=== PATIENT | female | born 1960 | race Caucasian/White ===

== ENCOUNTER 2017-12-07 08:35 | Day surgery (SDC) | payer OTHER ==
[2017-12-07] MEDS ORDERED: LACTATED RINGERS 1,000 ML IV ONE ×2 (10:03→11:17)
[2017-12-07] MEDS ORDERED: fentaNYL 250 MCG/5 ML VIAL IVP ONE (10:20)
[2017-12-07] MEDS ORDERED: MIDAZOLAM 2 MG/2 ML VIAL IVP ONE (10:20)
[2017-12-07 11:24] VITALS: BP 115/58
== END 2017-12-07 08:36 | disposition home or self-care (01) ==
LOC: SDS 08:35
PROVIDERS: ATTEND Surgery
PROC: 0DJD8ZZ Inspection of Lower Intestinal Tract, Via Natural or Artificial Opening Endoscopic (ICD-10-PCS; principal; 2017-12-07 10:30)
DX: Z12.11 Encounter for screening for malignant neoplasm of colon (principal); I10 Essential (primary) hypertension; E78.5 Hyperlipidemia, unspecified; K64.8 Other hemorrhoids
CPT/HCPCS: 45378; J3010; J7120

== ENCOUNTER 2018-11-04 06:53 | Emergency (ER) | payer OTHER ==
[2018-11-04 07:11] VITALS: BP 143/54
[2018-11-04] MEDS ORDERED: CHERRY SYRUP 10 ML UDC PO ONE (07:13)
[2018-11-04] MEDS ORDERED: DEXAMETHASONE 10 MG/ML VIAL PO STA (07:13)
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
== END 2018-11-04 07:42 | disposition home or self-care (01) ==
LOC: ED 06:53
DX: S29.012A Strain of muscle and tendon of back wall of thorax, initial encounter (principal); M54.5 Low back pain; V49.49XA Driver injured in collision with other motor vehicles in traffic accident, initial encounter; I10 Essential (primary) hypertension
CPT/HCPCS: 99282; 99283

== ENCOUNTER 2019-02-15 11:45 | Emergency (ER) | payer OTHER ==
[2019-02-15 12:08] VITALS: BP 108/62
--- NOTE | 2019-02-15 12:36 | ED Physician Documentation ---
History of Present Illness - Stated complaint Stated Complaint: RT SIDE LYMPH NODE SWOLLEN - Chief complaint Chief Complaint: General - History obtained from History obtained from: Patient - History of Present Illness Timing: Chronic (For the last 2 or 3 months she has had a slightly painful lesion under the right side of the jaw, she has noticed more recently that when she eats it becomes bigger in size and more painful. She wonders if it might be an infection but denies any fevers. No other swollen areas that she is noted. No weight loss.) Review of Systems Constitutional: denies: Fever, Chills, Myalgias, Fatigue, Weight Loss Nose: denies: Rhinorrhea / runny nose, Congestion Throat: denies: Sore throat Respiratory: denies: Dyspnea, Cough PD PAST MEDICAL HISTORY - Past Medical History Cardiovascular: Hypertension, High cholesterol Psych: Anxiety - Past Surgical History Past Surgical History: Yes - Present Medications Home Medications: Ambulatory Orders Medication Instructions Recorded Confirmed Atorvastatin [Lipitor] 10 mg PO DAILY 12/07/17 12/07/17 Ca/D3/Mag Ox/Zinc/Humane Agent/Jere/Bor 1 mg PO DAILY 12/07/17 12/07/17 [Calcium 272-M7-Mpxeswlf Chw Tb] Lisinopril 5 mg PO DAILY 12/07/17 12/07/17 Pediatric Multivit Comb No.101 1 each PO DAILY 12/07/17 12/07/17 [Gummy] - Allergies Allergies/Adverse Reactions: Allergies Allergy/AdvReac Type Severity Reaction Status Date / Time No Known Drug Allergies Allergy Verified 02/15/19 12:05 - Social History Does the pt smoke?: No Smoking Status: Never smoker Does the pt drink ETOH?: No Does the pt have substance abuse?: No - Immunizations Immunizations are current?: Yes - POLST Patient has POLST: No PD ED PE NORMAL - Vitals Vital signs reviewed: Yes - General General: Alert and oriented X 3, No acute distress - HEENT HEENT: Other (There is a tender firm lesion under the right mandible, no obvious sublingual swelling. No trismus.) - Neck Neck: Supple, no meningeal sign, No bony TTP - Neuro Neuro: Alert and oriented X 3, housing inspector 2-12 intact, Normal speech Results - Vitals Vitals: Vital Signs - 24 hr 02/15/19 12:05 Temperature 36.9 C Heart Rate 68 Respiratory 15 Rate Blood Pressure 108/62 O2 Saturation 98 Oxygen O2 Source Room air - Rads (name of study) CT Neck w Radiology: EMP read contemporaneously (Course 1.5 cm calcification within the right submandibular gland representing a sialolith and also a 4 mm sialolith in the distal right [place]'s duct, also noted multiple punctate calcifications in the tonsillar pillars.) PD MEDICAL DECISION MAKING - ED course ED course: Given history this most likely represents a salivary gland blockage, however lymphoma etc. are also on the differential. Departure - Departure Disposition: 01 Home, Self Care Clinical Impression: Sialolithiasis of submandibular gland Condition: Good Record reviewed to determine appropriate education?: Yes Instructions: ED Sublingual Gland Obstruction Comments: He need to follow-up with an ear nose and throat physician for further evaluation and treatment. The closest is in [place], the phone number is [phone]. Return if worse.
[2019-02-15] MEDS ORDERED: IOVERSOL 320 100 ML VIAL IVP ONE ×2 (12:42→13:13)
--- NOTE | 2019-02-15 13:57 | CT Report ---
Reason: R submandibular mass, ? salivary duct stone. Procedure Date: 02/15/2019 Accession Number: [id number] / [id number] Procedure: CT - SOFT TISSUE NECK W CPT Code: FULL RESULT: EXAM: CT SOFT TISSUE NECK WITH CONTRAST. EXAM DATE: 02/15/2019 01:12 PM. HISTORY: 58-year-old female, right submandibular mass, evaluate for salivary duct stone COMPARISONS: None. TECHNIQUE: Routine soft tissue neck CT protocol. Reconstructions: Coronal and sagittal. IV contrast: 80 cc Optiray 320. In accordance with CT protocol optimization, one or more of the following dose reduction techniques were utilized for this exam: automated exposure control, adjustment of mA and/or KV based on patient size, or use of iterative reconstructive technique. FINDINGS: Visualized Intracranial Contents: Unremarkable. Orbits: Symmetric and unremarkable. Sinuses: Visualized paranasal sinuses and mastoid air cells are clear. Oral cavity: The visualized oral cavity is unremarkable. The floor of the mouth is symmetric. Pharynx: Multiple punctate calcifications are present within the tonsillar pillars bilaterally. Pharyngeal mucosa is otherwise unremarkable. The infratemporal fossa, parapharyngeal spaces, and retropharyngeal space are unremarkable. The base of the tongue is symmetric and unremarkable. The airway is patent. Larynx: Larynx and supraglottic airway are patent without mass lesion. Vocal cords are symmetric. The visualized trachea is unremarkable. Parotid and Submandibular Glands: Coarse calcification measuring 1.5 cm is present within the right submandibular gland (series 3 image 52, series 6 image 70 ), representing a sialolith. In addition, there is likely a 4 mm sialolith within the distal right Geraldo's duct near the opening (series 3 image 57). The right submandibular gland is otherwise unremarkable. The left submandibular gland and parotid glands bilaterally are unremarkable. Lymph Nodes: No enlarged lymph nodes are identified in the cervical, supraclavicular, and visualized superior mediastinal regions. Soft tissues: Soft tissues are unremarkable. No mass lesion or abnormal enhancement. Vascular Structures: Unremarkable. Thyroid Gland: Normal. Lung: The visualized lung apices are clear. Bones: No evidence of acute fracture or malalignment. There are mild degenerative changes. Other: None. IMPRESSION: 1. Coarse calcification measuring 1.5 cm is present within the right submandibular gland (series 3 image 52, series 6 image 70 ), representing a sialolith. In addition, there is likely a 4 mm sialolith within the distal right Todd's duct near the opening (series 3 image 57). The right submandibular gland is otherwise unremarkable. 2. Multiple punctate calcifications are present within the tonsillar pillars bilaterally. RADIA
== END 2019-02-15 14:08 | disposition home or self-care (01) ==
LOC: ED 11:45
DX: K11.5 Sialolithiasis (principal); I10 Essential (primary) hypertension
CPT/HCPCS: 70491; 99282; 99284; Q9967

== ENCOUNTER 2019-02-18 13:47 | Emergency (ER) | payer OTHER ==
--- NOTE | 2019-02-18 15:04 | ED Physician Documentation ---
PD HPI HEENT - Stated complaint Stated Complaint: PAIN IN THROAT - Chief complaint Chief Complaint: Heent - History obtained from History obtained from: Patient - History of Present Illness Timing - onset: How many months ago (2 or 3) Timing - details: Gradual onset Location: Throat Associated symptoms: Swollen nodes Recently seen: Emergency Dept (3 days ago.) - Additional information Additional information: The patient is a 58-year-old female who complains of painful swelling in the right submandibular region. She first noticed it 2 or 3 months ago and it has been getting gradually worse since that time. She was seen here 3 days ago and underwent [address] scan which revealed a 1.5 cm calcification within the right submandibular gland consistent with sialolith. There was also visualization of a 4 mm sialolith in the distal right Geraldo's duct. She returns to the emergency department now because of pain that is worse when trying to eat. She is not able to get into her primary physician until , 6 days from now, and referral to ENT will take even longer. She denies fever, difficulty breathing, or headache. Review of Systems Constitutional: denies: Fever Eyes: denies: Irritation Ears: denies: Ear pain Nose: denies: Congestion Throat: reports: Other (swollen submandibular region) Cardiac: denies: Chest pain / pressure Respiratory: denies: Dyspnea, Cough GI: denies: Abdominal Pain, Nausea, Vomiting Skin: denies: Rash Musculoskeletal: reports: Neck pain Neurologic: denies: Headache PD PAST MEDICAL HISTORY - Past Medical History Cardiovascular: Hypertension, High cholesterol Psych: Anxiety - Past Surgical History Past Surgical History: Yes - Present Medications Home Medications: Ambulatory Orders Medication Instructions Recorded Confirmed Atorvastatin [Lipitor] 10 mg PO DAILY 12/07/17 12/07/17 Lisinopril 5 mg PO DAILY 12/07/17 12/07/17 Hydrocodone/Acetaminophen 1 - 2 each PO Q6H PRN #14 tablet 02/18/19 [Hydrocodon-Acetaminophen 5-325] - Allergies Allergies/Adverse Reactions: Allergies Allergy/AdvReac Type Severity Reaction Status Date / Time No Known Drug Allergies Allergy Verified 02/18/19 13:57 - Social History Does the pt smoke?: No Smoking Status: Never smoker Does the pt drink ETOH?: No Does the pt have substance abuse?: No - Immunizations Immunizations are current?: Yes - POLST Patient has POLST: No PD ED PE NORMAL - Vitals Vital signs reviewed: Yes (normal) - General General: Alert and oriented X 3, Well developed/nourished - HEENT HEENT: Atraumatic, EOMI, Ears normal, Pharynx benign - Neck Neck: Supple, no meningeal sign, Other (Firm, enlarged, tender right submandibular mass.) - Cardiac Cardiac: RRR - Respiratory Respiratory: No respiratory distress, Clear bilaterally - Derm Derm: No rash - Neuro Neuro: Alert and oriented X 3, No motor deficit, Normal speech Results - Vitals Vitals: Oxygen O2 Source Room air PD MEDICAL DECISION MAKING - ED course Complexity details: reviewed old records, considered differential, d/w patient ED course: The patient's presentation is significant for 1.5 cm calcification in the right submandibular gland, consistent with sialolith, as well as 4 mm stone obstructing Geraldo's duct. This was seen on CT scan that was performed here 3 days ago. The patient is concerned about delay in care because she needs a referral from her primary provider in order to be seen by an ENT specialist, and cannot get an appointment with her primary provider for another 6 days. I explained to her that we do not have ENT specialists on staff at this facility and that her clinical condition does not warrant an emergent intervention that would prompt me to bypass the normal outpatient referral process. She had contacted the ENT service that had been suggested to her on her previous emergency department visit, and was told that it would be 3 weeks before the soonest appointment was available prior to be seen. I provided her with contact information for other ENT services in the vicinity. She is being discharged with prescription for Vicodin, 14 tablets. I discussed with her potentially worrisome signs or symptoms that should prompt reevaluation in the emergency department. Departure - Departure Disposition: 01 Home, Self Care Clinical Impression: Sialolithiasis of submandibular gland Condition: Stable Instructions: ED Sublingual Gland Obstruction Follow-Up: Subhash Daley ARNP [Primary Care Provider] - Prescriptions: Hydrocodone/Acetaminophen [Hydrocodon-Acetaminophen 5-325] 1 - 2 each PO Q6H PRN #14 tablet PRN Reason: pain Comments: You can use ibuprofen, up to 800 mg 3 times daily for anti-inflammatory effect. You can use Vicodin as prescribed as needed for pain. Follow-up with ear nose throat (ENT) specialist as soon as possible. You should obtain urgent follow-up with your primary physician for referral to ENT. Return to the emergency department if you develop increasing difficulty swallowing, or otherwise worsening symptoms. Discharge Date/Time: 02/18/19 15:16
[2019-02-18 15:18] VITALS: BP 130/80
== END 2019-02-18 15:16 | disposition home or self-care (01) ==
LOC: ED 13:47
DX: K11.5 Sialolithiasis (principal); I10 Essential (primary) hypertension
CPT/HCPCS: 99282; 99284

== ENCOUNTER 2019-09-13 14:10 | Outpatient (CLI) | payer OTHER ==
--- NOTE | 2019-09-13 17:06 | SLEEP CARE CONSULTATION ---
Information from patient questionnaire entered by Nargis Harvey. I have reviewed and concur with the information entered by Nargis Harvey. This document represents the service I personally performed and the decisions made by me, Silvino Chaves MD, [facility]. History of Present Illness Reason for Visit: New patient Chief Complaint: reports: Insomnia, Unrefreshed sleep, Snoring, Excessive daytime sleepiness, Observed pauses in breathing, Fatigue, Frequent awakenings at night Duration of Symptoms: years Usual bedtime: lately, very early Time it takes to fall asleep: minutes Snores at night: Yes Observed to quit breathing while asleep: Yes Sleeps alone due to snoring: No Number of times waking at night: 4 Reasons for waking at night: reports: Gasping for air Toss, Turn, or Twitch while sleeping: Yes Recalls having dreams: No Usually gets out of bed at: 3-5 am Feels refreshed in the morning: No Morning headache: No Sleepy or fatigued during the day: Yes Ever fallen asleep while driving: No Takes day naps: No (not now) Dreams during day naps: No Prior sleep studies: No Additional HPI information: I had the pleasure of seeing Ms. Whitfield today regarding the possibility of her having a sleep disorder. As you know, she is a 59 year old lady who complains of loud snore, observed apneas, frequent awakenings, unrefreshed sleep, cognitive impairment, and excessive daytime sleepiness. The patient tells me that she normally goes to bed around 6:30 pm, and it takes her approximately just a few minutes to fall asleep. She has been told that she snores loudly and irregularly at night. She has never been observed to stop breathing in her sleep. Her spouse can still sleep in the same bed. He has obstructive sleep apnea-hypopnea and uses CPAP occasionally. She can recall waking up on the average of 4 times during the night. Most of the time she wakes up because of snoring, choking, and having to gasp for air. There is a lot of tossing and turning in her sleep. No somniloquy (sleep talking) or somnambulism (sleep walking). Generally there is no recollection of dreams. In the morning she usually gets up out of the bed around 3 - 5 a.m. not feeling refreshed nor rested. She usually does not have a morning headache. During the day she complains of feeling sleepy and fatigued. Her score on Brashear Sleepiness Scale is 22 out of 24. She has never fallen asleep while driving nor has had any accident due to sleepiness. She usually does not take naps during the day. Upon falling asleep during the day she denies having vivid dreams. She has never had sleep paralysis, experienced cataplexy or symptoms of restless leg syndrome. She occasionally reports having impaired concentration during the day. 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 Patient is and lives in [place]. Have you smoked in the past 12 months: No Years of smokin Quit date: 2017 Caffeine use: Yes Caffeine amount and frequency: very little Family History Family history of sleep disordered breathing: Yes Allergies and Home Medications Drug allergies reviewed: Yes (NKDA) Home medication list reviewed: Yes (lisinopril & Lipitor) Review of Systems Cardiovascular: reports: high blood pressure Respiratory: denies: shortness of breath, wheeze, sputum production, chronic cough, other Gastrointestinal: denies: heartburn, difficulty swallowing, nausea, vomitting, diarrhea, abdominal pain, other Urinary: denies: incontinence, frequency, urgency, impotence, other Neurological: denies: headaches, seizure, head trauma, disorientation, speech dysfunction, gait or balance problems, fainting or unconsciousness, other Psychiatric: reports: anxiety, depression, claustrophobia Ear/Nose/Throat: denies: nasal congestion, sinus problems, nose bleeds, dry mouth/throat, hoarseness, injury to nose, tonsillectomy, wisdom teeth removed, other Endocrine: reports: too hot or cold (cold) Musculoskeletal: denies: joint pain, neck pain, back pain, joint swelling, muscle pain or cramping, mobility problems, other Immunologic: denies: sneezing, rash, itching, allergies to food or environment, other Physical Exam Height: 5 ft 4 in Weight: 131 lb (Physical exam is deferred due to the Covid-19 epidemic) Body Mass Index: 22.4 BMI Classification: Healthy weight Impression and Plan IMPRESSION: 1. Obstructive Sleep Apnea-Hypopnea Syndrome, as suggested by history of loud and irregular snoring, observed cessation of breath while asleep, frequent awakenings during the night, unrefreshed sleep, cognitive impairment, and daytime hypersomnolence. Untreated obstructive sleep apnea can also cause hypertension. Pathophysiology of sleep-disordered breathing was discussed. I recommend proceeding to polysomnography to confirm the diagnosis and to assess severity. If she has significant sleep disordered breathing, a manual CPAP titration study will also be performed to find the optimal treatment pressure. I informed the patient of what the sleep studies involve and after some discussion, she agreed to proceed. Plan: 1. Schedule an in-laboratory polysomnography + manual CPAP titration study. 2. Avoid long distance driving or when feeling sleepy. 3. Avoid alcohol, sedative and muscle relaxant around bedtime. 4. Return in 1 to 2 weeks after the study to discuss results and initiate therapy I spent 100% of this visit face to face with the patient with greater than 50% of this was spent time counseling the patient and coordination of care.
== END 2019-09-13 14:11 | disposition home or self-care (01) ==
LOC: SC 14:10
PROVIDERS: ATTEND Internal Medicine Pulmonary Disease
DX: R06.83 Snoring (principal); R06.81 Apnea, not elsewhere classified; G47.8 Other sleep disorders; R41.89 Other symptoms and signs involving cognitive functions and awareness; G47.10 Hypersomnia, unspecified
CPT/HCPCS: 99203; 99212

== ENCOUNTER 2019-09-27 19:42 | Outpatient (CLI) | payer OTHER | END 2019-09-27 19:43 | disposition home or self-care (01) | LOC: SC 19:42 | PROVIDERS: ATTEND Internal Medicine Pulmonary Disease | DX: R06.83 Snoring (principal); R06.81 Apnea, not elsewhere classified; G47.8 Other sleep disorders; G47.10 Hypersomnia, unspecified | CPT/HCPCS: 95810 ==

== ENCOUNTER 2019-10-18 17:03 | Outpatient (CLI) | payer OTHER ==
--- NOTE | 2019-10-18 14:39 | SLEEP CARE CONSULTATION ---
Information from patient questionnaire entered by Nguyen Vela. I have reviewed and concur with the information entered by Nguyen Vela. This document represents the service I personally performed and the decisions made by me, Silvino Chaves MD, [facility]. History of Present Illness Service Date and Time: 10/18/2019 1420 Initial Alexander Sleepiness Scale score: 22 Additional HPI information: To minimize the risk of COVID-19 exposure, the patient has requested and consented to this video telemedicine visit. The patient also agrees to having her insurance billed. HPI: Ms. Whitfield was called for follow up of the sleep study she had on 09/27/2019. The polysomnography showed that the patient had normal sleep efficiency. The sleep architecture was normal as well. Respiratory monitoring showed no significant sleep disordered breathing (AHI = 0.3) or hypoxia (lev oxygen saturation of 91%). The patient slept adequately in supine position (supine AHI = 0.5; non-supine = 0.22). Snore was light in intensity. There was no significant periodic leg movement of sleep. Cardiac rhythm was normal sinus rhythm without significant arrhythmia. No abnormal behavior (parasomnia) observed during the night. The patient was informed of these findings. I explained to her the sleep study was normal. Allergies and Home Medications Drug allergies reviewed: Yes Home medication list reviewed: Yes Review of Systems Review of systems same as previous: Yes Physical Exam Height: 5 ft 4 in Impression and Plan IMPRESSION: 1. Primary Snore (ICD-10 R06.83), light only and no sleep-disordered breathing. No prescription is indicated. PLAN: 1. Return to the sleep clinic on as needed basis. Visit Type: Telehealth Video Video Type: octoScope Location of Provider: Home Time Spent with Patient (minutes): 11 Provider Statement: I spent 100% of the Telehealth Video Call with the patient with greater than 50% spent counseling the patient and coordination of care.
== END 2019-10-18 17:04 | disposition home or self-care (01) ==
LOC: SC 17:03
PROVIDERS: ATTEND Internal Medicine Pulmonary Disease
DX: R06.83 Snoring (principal); R06.81 Apnea, not elsewhere classified; G47.10 Hypersomnia, unspecified; G47.8 Other sleep disorders
CPT/HCPCS: 99212; 99213

== ENCOUNTER 2020-12-27 17:58 | Emergency (ER) | payer OTHER ==
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
--- NOTE | 2020-12-27 20:26 | ED Physician Documentation ---
PD HPI LOWER EXT INJURY - Stated complaint Stated Complaint: RT FOOT/INJ - Chief complaint Chief Complaint: Ext Problem - History obtained from History obtained from: Patient - Additional information Additional information: Patient comes emergency department chief complaint of right ankle injury after rolling her ankle today. Patient states she was just walking in wedge sandals when her ankle suddenly rolled. She states she has a history of some instability in the ankle previously because of a previous sprain she thinks. Patient has noticed pain and swelling over the lateral malleolar area. She has been bearing weight on the foot today, though it does cause her ankle to her more. No other complaints or injuries. Review of Systems Ten Systems: 10 systems reviewed and negative Constitutional: reports: Reviewed and negative Eyes: reports: Reviewed and negative Ears: reports: Reviewed and negative Nose: reports: Reviewed and negative Throat: reports: Reviewed and negative Cardiac: reports: Reviewed and negative Respiratory: reports: Reviewed and negative GI: reports: Reviewed and negative : reports: Reviewed and negative Skin: reports: Reviewed and negative Musculoskeletal: reports: Joint swelling, Pain with weight bearing Neurologic: reports: Reviewed and negative Psychiatric: reports: Reviewed and negative Endocrine: reports: Reviewed and negative Immunocompromised: reports: Reviewed and negative PD PAST MEDICAL HISTORY - Past Medical History Cardiovascular: Hypertension, High cholesterol Psych: Anxiety - Past Surgical History Past Surgical History: Yes - Present Medications Home Medications: Ambulatory Orders Medication Instructions Recorded Confirmed Atorvastatin [Lipitor] 10 mg PO DAILY 12/07/17 12/07/17 lisinopriL [Lisinopril] 5 mg PO DAILY 12/07/17 12/07/17 Hydrocodone/Acetaminophen 1 - 2 each PO Q6H PRN #14 tablet 02/18/19 [Hydrocodon-Acetaminophen 5-325] - Allergies Allergies/Adverse Reactions: Allergies Allergy/AdvReac Type Severity Reaction Status Date / Time No Known Drug Allergies Allergy Verified 12/27/20 18:11 - Social History Does the pt smoke?: No Smoking Status: Never smoker Does the pt drink ETOH?: No Does the pt have substance abuse?: No - Immunizations Immunizations are current?: Yes - POLST Patient has POLST: No PD ED PE NORMAL - Vitals Vital signs reviewed: Yes - General General: Alert and oriented X 3, No acute distress, Well developed/nourished - HEENT HEENT: Atraumatic, PERRL, EOMI, Moist mucous membranes - Neck Neck: Supple, no meningeal sign - Respiratory Respiratory: No respiratory distress - Derm Derm: Normal color, Warm and dry, No rash - Extremities Extremities: No deformity, Other (Edema over her lateral malleolus right ankle with tenderness. No deformity. Limited range of motion secondary to pain.) - Neuro Neuro: Alert and oriented X 3, No motor deficit, No sensory deficit - Psych Psych: Normal mood, Normal affect Results - Vitals Vitals: Vital Signs - 24 hr 12/27/20 18:11 Temperature 36.5 C Heart Rate 80 Respiratory 16 Rate Blood Pressure 143/76 H O2 Saturation 98 Oxygen O2 Source Room air - Rads (name of study) R ankle XR Radiology: Final report received, EMP read indepedently, See rad report (Nondisplaced distal tibia fracture.) Procedures - Splint (location) R ankle Splint applied by: Tech Type of splint: Fiberglass, Posterior, Stirrup Other: Patient tolerated well, No complications, Neurovascular intact, Crutches provided PD MEDICAL DECISION MAKING - ED course Complexity details: reviewed results, re-evaluated patient, considered differential, d/w patient ED course: I discussed with the patient that her x-ray does show a distal fibular fracture. We have discussed that she will need to keep the splint in place onHer ankle and remain nonweightbearing with crutches until cleared by orthopedics. I have advised her that she will need to see Ortho within the week to discuss casting. I do not anticipate this will be a surgical fracture. The patient does not desire any pain control in the emergency department and is fairly comfortable. Splint has been placed. We have discussed the usual indications for return. Departure - Departure Disposition: 01 Home, Self Care Clinical Impression: Fracture of distal fibula Qualifiers: Encounter type: initial encounter Fracture type: closed Fracture morphology: unspecified fracture morphology Laterality: right Qualified Code(s): S82.831A - Other fracture of upper and lower end of right fibula, initial encounter for closed fracture Condition: Stable Instructions: ED Fx Ankle General Follow-Up: Jose Eduardo San MD [Provider Admit Priv/Credential] - Comments: Your x-ray series today shows a nondisplaced fracture, or break, of the lower end of your fibula, the smaller of your to lower leg bones that forms the outer "bump" of your ankle. This should heal well with splinting and casting and keeping weight off of the foot and leg for the next several weeks. You should follow-up with orthopedics within the week to talk about having your ankle casted. You may take ibuprofen and Tylenol as needed. Prop the leg up whenever you can to help get rid of the swelling.
[2020-12-27 20:41] VITALS: BP 139/80
== END 2020-12-27 20:43 | disposition home or self-care (01) ==
LOC: ED 17:58
DX: S82.831A Other fracture of upper and lower end of right fibula, initial encounter for closed fracture (principal); X50.1XXA Overexertion from prolonged static or awkward postures, initial encounter; Y93.01 Activity, walking, marching and hiking; I10 Essential (primary) hypertension
CPT/HCPCS: 29515; 99284

== ENCOUNTER 2021-01-08 07:28 | Outpatient (CLI) | payer OTHER ==
--- NOTE | 2021-01-08 18:09 | XRAY Report ---
PROCEDURE: Ankle 3 View RT INDICATIONS: R ANKLE PX TECHNIQUE: 3 views of the ankle were acquired. COMPARISON: 12/27/2020 FINDINGS: Bones: Previously seen nondisplaced distal fibular fracture is less well seen on the current study, t marilee there is cortical irregularity seen only on the lateral view along the posterior fibular cortex , mildly suspicious for fracture. Bony alignment is normal. Ankle mortise is normally aligned. No s uspicious bony lesions. Soft tissues: No tibiotalar joint effusion. Achilles tendon appears normal. IMPRESSION: Possible nondisplaced distal fibular fracture. Consider immobilization and reimaging in 2-3 weeks to assess for healing changes. Reviewed by: Elle Sherman MD on 01/08/2021 6:07 PM PDT Approved by: Elle Sherman MD on 01/08/2021 6:07 PM PDT Station ID: [id number]
== END 2021-01-08 07:29 | disposition home or self-care (01) ==
LOC: DI.N 07:28
PROVIDERS: ATTEND Physician Assistant
DX: M25.571 Pain in right ankle and joints of right foot (principal)